=== PATIENT | female | born 2000 | race Hispanic/Latino ===

== ENCOUNTER → 2023-12-01 08:22 | Outpatient (REF) | payer OTHER, SELFPAY ==
[2023-12-01 09:03] LABS: Hematocrit 37.1 % (37.0-47.0); Hemoglobin 12.8 g/dL (12.0-16.0); Mean Corp Hgb Conc. 34.5 g/dL (33.0-37.0); Mean Corpuscular Hgb 30.7 pg (27.0-31.0); Mean Platelet Volume 10.9 fL (7.4-10.4); Platelet Count 267 10^3/uL (130-400); Red Blood Cell Count 4.17 10^6/uL (4.20-5.40); Red Cell Dist. Width 13.1 % (11.5-14.5); White Blood Cell Count 7.2 10^3/uL (4.8-10.8)
[2023-12-01 09:56] LABS: ALT (SGPT) 18 U/L (0-35); AST (SGOT) 18 U/L (14-36); Albumin 3.6 g/dl (3.5-5.0); Alkaline Phosphatase 74 U/L (38-126); Blood Urea Nitrogen 9 mg/dl (7-17); Carbon Dioxide 24 mmol/L (22-30); Chloride 110 mmol/L (98-107); Glucose 83 mg/dl (70-99); Potassium 4.6 mmol/L (3.5-5.1); Sodium 137 mmol/L (135-145); Total Bilirubin 0.8 mg/dl (0.2-1.3); Total Protein 6.2 g/dl (6.3-8.2); eGFR > 60.00
[2023-12-01 10:25] LABS: FSH < 0.7 mIU/ml; Luteinizing Hormone < 0.22 mIU/ml
[2023-12-01 10:26] LABS: TSH 1.82 uIU/ml (0.47-4.68)
== END ==
LOC: CLINIC 08:22
PROVIDERS: ATTENDING PHYSICIAN Nurse Practitioner Adult Health
DX: N93.9 Abnormal uterine and vaginal bleeding, unspecified (principal)
CPT/HCPCS: 36415; 80053; 83001; 83002; 84439; 84443; 85027

== ENCOUNTER → 2023-12-08 13:44 | Outpatient (REF) | payer OTHER, SELFPAY | LOC: CLINIC 13:44 | PROVIDERS: ATTENDING PHYSICIAN Obstetrics & Gynecology Gynecology | DX: Z12.4 Encounter for screening for malignant neoplasm of cervix (principal); Z20.2 Contact with and (suspected) exposure to infections with a predominantly sexual mode of transmission | CPT/HCPCS: 87491; 87591; G0123 ==

== ENCOUNTER → 2024-01-04 09:56 | Outpatient (REF) | payer OTHER, SELFPAY ==
[2024-01-04 13:44] LABS: ALT (SGPT) 22 U/L (0-35); AST (SGOT) 19 U/L (14-36); Albumin 3.9 g/dl (3.5-5.0); Alkaline Phosphatase 84 U/L (38-126); Blood Urea Nitrogen 10 mg/dl (7-17); Calcium 11.2 mg/dl (8.4-10.2); Carbon Dioxide 22 mmol/L (22-30); Chloride 110 mmol/L (98-107); Glucose 90 mg/dl (70-99); Potassium 4.5 mmol/L (3.5-5.1); Sodium 137 mmol/L (135-145); Total Bilirubin 0.5 mg/dl (0.2-1.3); Total Protein 6.5 g/dl (6.3-8.2); eGFR > 60.00
[2024-01-05 10:57] LABS: Intact PTH 99.7 pg/ml (13.6-85.8)
== END ==
LOC: REG 09:56
PROVIDERS: ATTENDING PHYSICIAN Nurse Practitioner Adult Health
DX: E83.52 Hypercalcemia (principal)
CPT/HCPCS: 36415; 80053; 83970

== ENCOUNTER → 2024-03-29 16:31 | Outpatient (REF) | payer OTHER, SELFPAY ==
[2024-03-29 18:41] LABS: Erythrocyte Sed Rate 9 mm/hour (0-20)
[2024-04-01 00:25] LABS: ANA, IgG Reflex to HEp-2 None Detected (None Detected)
== END ==
LOC: REG 16:31
PROVIDERS: ATTENDING PHYSICIAN Nurse Practitioner Adult Health
DX: R21 Rash and other nonspecific skin eruption (principal)
CPT/HCPCS: 36415; 85652; 86038; 86140